=== PATIENT | male | born 1980 | race Hispanic/Latino ===

== ENCOUNTER 2021-02-10 11:17 | Outpatient (CLI) | payer OTHER | END 2021-02-10 11:18 | disposition home or self-care (01) | LOC: CSHWCC 11:17 | PROVIDERS: ATTEND Nurse Practitioner Family | DX: T81.89XD Other complications of procedures, not elsewhere classified, subsequent encounter (principal); M72.6 Necrotizing fasciitis; E11.8 Type 2 diabetes mellitus with unspecified complications ==

== ENCOUNTER 2021-04-24 08:33 | Outpatient (CLI) | payer OTHER | END 2021-04-24 08:34 | disposition home or self-care (01) | LOC: CSHWCC 08:33 | PROVIDERS: ATTEND Nurse Practitioner Family | DX: T81.89XD Other complications of procedures, not elsewhere classified, subsequent encounter (principal); M13.80 Other specified arthritis, unspecified site; M72.6 Necrotizing fasciitis; E11.8 Type 2 diabetes mellitus with unspecified complications | CPT/HCPCS: 11042 ==

== ENCOUNTER 2021-06-29 08:09 | Outpatient (CLI) | payer OTHER | END 2021-06-29 08:10 | disposition home or self-care (01) | LOC: CSHWCC 08:09 | PROVIDERS: ATTEND Nurse Practitioner Family | DX: T81.89XD Other complications of procedures, not elsewhere classified, subsequent encounter (principal); E11.8 Type 2 diabetes mellitus with unspecified complications; M13.80 Other specified arthritis, unspecified site; M72.6 Necrotizing fasciitis | CPT/HCPCS: 99212; G0463 ==